=== PATIENT | male | born 1955 | race Caucasian/White ===

== ENCOUNTER 2020-06-08 15:05 | Emergency (ER) | payer MEDICARE, OTHER, SELFPAY ==
[2020-06-08] VITALS (7 sets, daily range): BP systolic 159–181; BP diastolic 79–103; PULSE 48–55; RESP 19; TEMP 36.3; O2SAT 99–100
[2020-06-08] MEDS: FAMOTIDINE 20 MG/50 ML PIGGYBACK 200 MG IV (15:48)
[2020-06-08] MEDS: methylPREDNISolone 125 MG/2 ML VIAL IV (15:49)
[2020-06-08] MEDS: diphenhydrAMINE 50 MG/ML VIAL IV (15:49)
--- NOTE | 2020-06-08 16:02 | PC.NURSE ---
pt has low HR which is normal for him
--- NOTE | 2020-06-08 17:05 | ED_ITS ---
HPI - Skin/Abscess/Foreign Bdy <KOMAL Martinez - Last Filed: 06/08/20 17:15> General Chief complaint: Skin/Abscess/Foreign Body Stated complaint: lower lip very swollen, thinks stung by something Time Seen by Provider: 06/08/20 15:15 Source: patient Mode of arrival: Ambulatory Limitations: no limitations History of Present Illness HPI narrative: This is a 64-year-old male, nonsmoker, who has noncontributing medical history presents to ED with significant other with chief complain of swelling to lower lip and chin after possibly stung by a bee 40 minutes ago. Patient denies swelling to his tongue, throat, breathing difficulty, chest pain, near syncope, nausea/vomiting, or abdominal pain. Patient was waiting at the [employer] and was eating blackberries when he noticed stinging sensation discomfort to lower lip. Patient was not able to find testing but spouse states found a drop of blood on external mid lower lip. Patient states he was stung by bees before without anaphylactic symptoms. Last tetanus immunization was in November 2015. Related Data Home Medications Medication Instructions Recorded Confirmed rosuvastatin 10 mg PO SEEINSTR 06/08/20 06/08/20 rosuvastatin 20 mg PO SEEINSTR 06/08/20 06/08/20 warfarin 5 mg PO SEEINSTR 06/08/20 06/08/20 Previous Rx's Medication Instructions Recorded prednisone 40 mg PO DAILY 4 Days #8 tab 06/08/20 Allergies Allergy/AdvReac Type Severity Reaction Status Date / Time No Known Drug Allergies Allergy Verified 06/08/20 15:20 Review of Systems <KOMAL Martinez - Last Filed: 06/08/20 17:15> Review of Systems Narrative: General: Denies fever, chills, fatigue, malaise, sweats. HEENT: See HPI Respiratory: Denies dyspnea, cough, wheezing, hemoptysis, sputum. Cardiovascular: Denies chest pain, palpitations, orthopnea, edema. Gastrointestinal: Denies nausea, vomiting, abdominal pain, diarrhea, constipation, melena. : Denies dysuria, frequency, incontinence, hematuria, urinary retention. Musculoskeletal: Denies weakness, joint pain or bony pain. Skin: See HPI Neurologic: Denies weakness, headache, numbness, change in speech, confusion, seizures, incoordination. Psychiatric: No concerning psychosocial issues. 12-point review of systems is negative except for those stated above. Patient History <Rico AnnCiroSteveKOMAL harrington - Last Filed: 06/08/20 17:15> Medical History Bradycardia (Acute) Social History Smoking Status: Never smoker Smoking Status: Never smoker alcohol intake frequency: a few times a month Substance Use Type: does not use Exam <Rico AnnKOMAL Osman - Last Filed: 06/08/20 17:15> Narrative Exam Narrative: GEN: Alert, oriented x 3, well appearing and nourished, and in no acute distress. Head: Normal cephalic, atraumatic. No scalp or temporal tenderness, palpable mass or rash. EYES: Pupils are equal, round, and reactive to light and accommodation. Extraocular muscles are intact bilaterally. There is no subconjunctival hemorrhage, exudate and sclera non-icteric. ENT: Hearing grossly intact. Nose without bleeding, purulent discharge or de viation. Facial sinuses nontender to palpate. Mucous membrane moist, no mucosal lesion. Throat without erythema, tonsillar hypertrophy or exudate. Uvula in midline, airway patent. Neck: Trachea in midline. No JVD, non-tender without lymphadenopathy. No masses or thyroid megaly. Supple, non-tender and no meningeal signs. CARDIAC: Normal regular rate and rhythm without murmurs, gallops, or rubs. No chest wall tenderness. No peripheral edema, cyanosis or pallor. Capillary refill is less than 2 seconds. RESPIRATORY: Lungs are clear to auscultate bilaterally. No cough, wheezes, rales, or rhonchi. No stridor, respiratory distress, increase work of breathing, or accessary muscle used. ABD: Abdomen soft, nontender and non-distended. No guarding or rebound tenderness to palpate. Bowel sounds are normal in all 4 quadrants. There is no palpable masses or organomegaly. EXT: Full painless ROM of all extremities with no loss of sensation, strength, effusion or edema. SKIN: Significant edematous lower lip ext tending to jaws with mild erythema. Warm, dry, normal color for patient. No erythema, lesions or rash over visible areas. BACK: Nontender without deformity or crepitance. No flank tenderness. NEUROLOGICAL: Alert and oriented to place, time and person. Sensation and motor function intact bilaterally. No facial droops, dysphasia. PSYCHIATRIC: Good judgement and reason, without hallucinations, abnormal affect or abnormal behaviors during the examination. Patient is not suicidal. Initial Vital Signs Initial Vital Signs: Vital Signs Temperature 97.4 F L 06/08/20 15:17 Pulse Rate 55 L 06/08/20 15:17 Respiratory Rate 06/08/20 15:17 Blood Pressure 181/103 H 06/08/20 15:17 Pulse Oximetry 99 06/08/20 15:17 <Yara Danielle MD - Last Filed: 06/08/20 17:53> Initial Vital Signs Initial Vital Signs: Vital Signs Temperature 97.4 F L 06/08/20 15:17 Pulse Rate 55 L 06/08/20 15:17 Respiratory Rate 06/08/20 15:17 Blood Pressure 181/103 H 06/08/20 15:17 Pulse Oximetry 99 06/08/20 15:17 Scores <KOMAL Martinez - Last Filed: 06/08/20 17:15> GCS [place] coma scale eye opening: Spontaneous [place] coma scale verbal response: Orientated [place] coma scale motor response: Obey commands [place] coma scale total score: 15 Course <KOMAL Martinez - Last Filed: 06/08/20 17:15> Orders Ordered: Discontinued Medications Diphenhydramine HCl (Benadryl) 50 mg IV NOW ONE Stop: 06/08/20 15:23 Last Admin: 06/08/20 15:49 Dose: 50 mg Documented by: REHANA Famotidine (Pepcid) 20 mg in 50 mls @ 200 mls/hr IV NOW ONE Stop: 06/08/20 15:36 Last Infusion: 06/08/20 16:43 Dose: 0 mls/hr Documented by: Admin: 06/08/20 15:48 Dose: 200 mls/hr Documented by: REHANA Methylprednisolone (Solu-Medrol 125 Mg Vial) 125 mg IV NOW ONE Stop: 06/08/20 15:24 Last Admin: 06/08/20 15:49 Dose: 125 mg Documented by: REHANA Vital Signs Vital signs: Vital Signs - 8 hr 06/08/20 15:17 06/08/20 16:00 06/08/20 16:01 Temperature 97.4 F L Pulse Rate 55 L 53 L 50 L Respiratory Rate 19 Blood Pressure 181/103 H 163/84 H Pulse Oximetry 99 100 06/08/20 16:30 06/08/20 16:52 06/08/20 17:00 Temperature Pulse Rate 51 L 51 L 48 L Respiratory Rate Blood Pressure 174/82 H 159/83 H Pulse Oximetry 99 100 100 06/08/20 17:01 Temperature Pulse Rate 49 L Respiratory Rate Blood Pressure 163/79 H Pulse Oximetry 100 <Yara Danielle MD - Last Filed: 06/08/20 17:53> Orders Ordered: Discontinued Medications Diphenhydramine HCl (Benadryl) 50 mg IV NOW ONE Stop: 06/08/20 15:23 Last Admin: 06/08/20 15:49 Dose: 50 mg Documented by: REHANA Famotidine (Pepcid) 20 mg in 50 mls @ 200 mls/hr IV NOW ONE Stop: 06/08/20 15:36 Last Infusion: 06/08/20 16:43 Dose: 0 mls/hr Documented by: Admin: 06/08/20 15:48 Dose: 200 mls/hr Documented by: REHANA Methylprednisolone (Solu-Medrol 125 Mg Vial) 125 mg IV NOW ONE Stop: 06/08/20 15:24 Last Admin: 06/08/20 15:49 Dose: 125 mg Documented by: REHANA Vital Signs Vital signs: Vital Signs - 8 hr 06/08/20 15:17 06/08/20 16:00 06/08/20 16:01 Temperature 97.4 F L Pulse Rate 55 L 53 L 50 L Respiratory Rate 19 Blood Pressure 181/103 H 163/84 H Pulse Oximetry 99 100 06/08/20 16:30 06/08/20 16:52 06/08/20 17:00 Temperature Pulse Rate 51 L 51 L 48 L Respiratory Rate Blood Pressure 174/82 H 159/83 H Pulse Oximetry 99 100 100 06/08/20 17:01 Temperature Pulse Rate 49 L Respiratory Rate Blood Pressure 163/79 H Pulse Oximetry 100 MDM - Skin/Abscess/Foreign Bdy <Rico KOMAL Carlson - Last Filed: 06/08/20 17:15> Differential Diagnosis Differential diagnosis: Likely insect bites and other (Localized allergic reaction) Medical Records Attestation: I reviewed the patient's medical records. [facility] Narrative Medical decision making narrative: This is a 64-year-old gentleman presents to ED after likely stung by a bee on lower lip while eating blackberries at the [employer] before coming into ED. There was significant swelling to lower lip which is cyst extending to chin but no swelling to tongue or throat. Airway was patent without increased work of breathing. Lungs were clear to auscultate and no stridor is. No other anaphylactic symptoms reported per patient. Given the location and severity of bee sting reactions, patient elected to use IV medic ations verses p.o.. He was given IV Benadryl, Pepcid, Solu-Medrol and monitored for near 2 hours. His symptoms much improved and continue not to have stridor, dyspnea, other oropharyngeal swelling. Patient discharged to home with these medications and strict return precautions were discussed with spouse and patient. They both verbalized the understanding and agreement with the treatment plan. Explained to spouse that it is likely localized reaction to bee sting but location lower lip which is different from anaphylactic reaction or shock. Discharge Plan Departure Patient Disposition: Home Clinical Impression: Allergic reaction to bee sting Discharge Date/Time: 06/08/20 17:15 Instructions: DI for Insect Bites and Stings Activity Restrictions/Additional Instructions: You have been diagnosed with [bee sting on lip with localized reaction. You have received IV Benadryl, Solu-Medrol, and Pepcid in ED to treat severe localized reaction on lower lip swelling with improvement.]. What to do: *Take your medications as directed. Please continue with prednisone for next 4 days daily. You can start this tomorrow. You may need additional Benadryl for recurring symptoms. You can take [id number] Benadryl 25-50 up to 3 to 4 times a day as needed for itching, swelling, redness. Tagamet or Pepcid 20 mg once a day for histamine diane. Use cool pack on affected site frequently for next couple of days. Prednisone has been transmitted to [facility] in [facility]. *Follow up with your primary care provider in 2-3 days, call for an appointment. Let them know you were seen in the ED and that we asked you to be seen in follow up. *Return to ED if you have any new, worsening, or concerning symptoms, such as chest pain, difficulty breathing, swelling to throat/tongue, abdominal pain, feeling like faint, nausea/vomiting or any acute concerns. If severe allergy reaction occurs such these, please call 911 . Prescriptions: New prednisone 20 mg tablet 40 mg PO DAILY 4 Days Qty: 8 RF: 0 No Action warfarin 1 mg tablet 5 mg PO SEEINSTR RF: 0 rosuvastatin 10 mg tablet 10 mg PO SEEINSTR RF: 0 rosuvastatin 20 mg tablet 20 mg PO SEEINSTR RF: 0 <Yara Danielle MD - Last Filed: 06/08/20 17:53> Cosign ED Attending Cosignature Attestation: I was immediately available in the department for consultation throughout this patient's visit. I agree with documentation as above. Yara Danielle MD
== END 2020-06-08 17:15 | disposition home or self-care (01) ==
PROVIDERS: Emergency Provider Nurse Practitioner Family
DX: T78.40XA Allergy, unspecified, initial encounter (principal); T63.441A Toxic effect of venom of bees, accidental (unintentional), initial encounter
CPT/HCPCS: 96365; 96375; 99283; 99284; J1200; J2930

== ENCOUNTER 2023-01-24 14:45 | Emergency (ER) | payer MEDICARE, OTHER, SELFPAY ==
[2023-01-24] VITALS (8 sets, daily range): BP systolic 125–148; BP diastolic 65–82; PULSE 45–51; RESP 15–27; TEMP 36.7; O2SAT 97–100; BMI 21.7
--- NOTE | 2023-01-24 14:57 | DI.RAD.S_ITS ---
PROCEDURE: XR CHEST 1V INDICATIONS: Possible stroke TECHNIQUE: One view of the chest was acquired. COMPARISON: None. FINDINGS: Surgical changes and devices: None. Lungs and pleura: Lungs are clear. No pleural effusions or pneumothorax. Mediastinum: Mediastinal contours appear normal. Heart size is normal. Bones and chest wall: No suspicious bony lesions. Overlying soft tissues appear unremarkable. IMPRESSION: No acute cardiopulmonary abnormalities or focal airspace disease. Dictated by: Frank Hooks M.D. on 01/24/2023 at 15:48 Approved by: Frank Hooks M.D. on 01/24/2023 at 15:49
--- NOTE | 2023-01-24 14:57 | DI.CT.S_ITS ---
PROCEDURE: CT STROKE INDICATIONS: Positive BE-FAST, Stroke symptoms TECHNIQUE: Noncontrast 4.5 mm thick angled axial sections acquired from the foramen magnum to the vertex, with coronal reformats. For radiation dose reduction, the following was used: automated exposure control, adjustment of mA and/or kV according to patient size. COMPARISON: None. FINDINGS: Image quality: Excellent. CSF spaces: Basal cisterns are patent. No extra-axial fluid collections. The ventricles are symmetric in size and shape. Brain: No intracranial bleeds or masses. There is moderate cerebral volume loss for age, with resultant ventricular and sulcal prominence. There are moderate periventricular and deep white matter chronic small vessel ischemic changes. There is encephalomalacia involving the left temporal lobe compatible with remote infarction. No findings to suggest acute mass effect or sulcal effacement. There is intracranial internal carotid artery atherosclerosis. Skull and face: Calvarium and visualized facial bones appear intact, without suspicious lesions. Sinuses: Visualized sinuses and mastoids are clear. IMPRESSION: 1. CT head without acute intracranial abnormalities. Age related senescent changes and sequela of chronic small vessel ischemic disease. Moderate-sized encephalomalacia involving the left temporal lobe consistent with reported history of remote infarction. If there is persistent or high clinical suspicion for acute cerebrovascular ischemia/stroke, more sensitive evaluation with brain MRI can be considered. 2. No acute calvarial fracture. Findings were discussed telephonically with Dr. Iverson at 1528 hrs. This study fulfills neurological imaging criteria for inclusion or exclusion of acute stroke therapies based on available published neurological guidelines. Dictated by: Frank Hooks M.D. on 01/24/2023 at 15:24 Approved by: Frank Hooks M.D. on 01/24/2023 at 15:29
--- NOTE | 2023-01-24 15:07 | DI.CT.S_ITS ---
PROCEDURE: CT ANGIO HEAD AND NECK INDICATIONS: limb numbness TECHNIQUE: After the administration of intravenous contrast, 1.5 mm axial sections acquired from the aortic arch to the [place] of [place]. Maximum intensity projection (MIP) reformats were then performed. COMPARISON: [facility], CT, CT STROKE, 01/24/2023, 15:06. FINDINGS: Image quality: Excellent. 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 The origins of the common carotid arteries appear patent. The common carotid arteries demonstrate normal calibers and courses. The bifurcation regions appear normal bilaterally. The internal carotid arteries demonstrate normal caliber and course. Posterior circulation: The origins of the vertebral arteries appear patent. The more superior portions of the vertebral arteries demonstrate normal course and caliber. They join to form a normal appearing basilar artery. Soft tissues: Visualized neck soft tissues demonstrate no suspicious abnormalities. Thyroid gland is unremarkable . Hypoattenuation within the left temporal parietal lobe consistent with remote infarction is again identified. Bones: No suspicious bony lesions. Visualized cervical spine appears normally aligned. Anterior circulation: There are no areas of acute hemodynamically significant stenosis, vascular occlusion, aneurysmal dilation or dissection within the anterior, posterior middle cerebral arteries. The intracranial internal carotid arteries are widely patent bilaterally. Posterior circulation: There is a left vertebral artery dominance. Vertebral arteries join to form a normal appearing basilar artery. Posterior cerebral artery demonstrates no areas of acute hemodynamically significant stenosis, vascular occlusion or aneurysmal dilation. IMPRESSION: Chronic microvascular ischemic change and atrophy. 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 No areas of hemodynamically significant stenosis, vascular occlusion or aneurysmal dilation within the anterior circulation. No areas of hemodynamically significant stenosis, vascular occlusion or aneurysmal dilation within the posterior circulation. No areas of hemodynamically significant stenosis, vascular occlusion or aneurysmal dilation within the neck vasculature. Any quantitative stenosis measurements were performed using the NASCET criteria. Dictated by: Analia Harris M.D. on 01/24/2023 at 15:41 Approved by: Analia Harris M.D. on 01/24/2023 at 15:45
[2023-01-24 15:23] LABS: INR 1.1 (0.9-1.3); Prothrombin Time 12.4 SECONDS (10.1-12.7)
[2023-01-24 15:25] LABS: Alanine Aminotransferase 25 IU/L (<50); Albumin 4.1 g/dL (3.5-5.0); Albumin Globulin Ratio 1.4 (1.0-2.8); Alkaline Phosphatase 56 U/L (38-126); Aspartate Aminotransferase 33 IU/L (17-59); BUN Creatinine Ratio 24.7 (6-22); Bilirubin Total 0.3 mg/dL (0.2-1.3); Blood Urea Nitrogen 20 mg/dL (9-20); Calcium 9.2 mg/dL (8.4-10.2); Carbon Dioxide 28 mmol/L (22-32); Chloride 106 mmol/L (98-107); Creatine Kinase 109 U/L (55-170); Estimated Glomerular Filt Rate > 60 mL/min (>60); Globulin 2.9 g/dL (1.7-4.1); Glucose 92 mg/dL (80-110); HEMOLYSIS < 15 (0-50); Magnesium 2.2 mg/dL (1.6-2.3); Sodium 140 mmol/L (137-145)
[2023-01-24 15:26] LABS: PTT Partial Thromboplastin Tim 31 SECONDS (26-36)
[2023-01-24 15:31] LABS: Add Manual Diff / Slide Review NO; Basophils Absolute Auto 0 /uL (0-100); Basophils Percent Auto 0.5 % (0-2); Eosinophils Absolute Auto 100 /uL (0-450); Eosinophils Percent Auto 1.3 % (2-4); Hematocrit 41.6 % (41-53); Hemoglobin 14.5 g/dL (13.5-17.5); Lymphocytes Absolute Auto 1200 /uL (1100-4500); Lymphocytes Percent Auto 22.6 % (25-40); Mean Corpuscular HGB Conc 34.9 % (30-36); Mean Corpuscular Hemoglobin 31.9 PG (26-34); Mean Corpuscular Volume 91.5 fL (80-100); Monocytes Absolute Auto 500 /uL (0-900); Monocytes Percent Auto 8.9 % (3-14); Neutrophils Absolute Auto 3500 /uL (1500-7000); Neutrophils Percent Auto 66.7 % (50-75); Platelet Count 203 X10^3/uL (150-400); Red Blood Cell Count 4.54 X10^6/uL (4.5-5.9); Red Cell Distribution Width 13.1 % (11.6-14.8); White Blood Cell Count 5.3 X10^3/uL (4.5-11.0)
[2023-01-24 15:37] LABS: Troponin I < 0.012 ng/mL (0.01-0.034)
[2023-01-24 15:40] LABS: CKMB % Relative Index 1.1 % (1.5-5.0); Creatine Kinase MB 1.18 ng/mL (<2.37)
[2023-01-24 15:41] LABS: D Dimer < 215 ng/ml (<500)
[2023-01-24 18:25] LABS: Appearance Urine UA CLEAR; Bilirubin Urine UA NEGATIVE (NEGATIVE); Color Urine UA YELLOW; Glucose Urine UA NEGATIVE (Negative); Ketones Urine UA NEGATIVE (NEGATIVE); Leukocyte Esterase Urine UA NEGATIVE (NEGATIVE); Nitrite Urine UA NEGATIVE (Negative); Occult Blood Urine UA NEGATIVE (Negative); Protein Urine UA NEGATIVE (Negative); Specific Gravity Urine UA <=1.005 (1.000-1.035); Urobilinogen Urine UA 0.2 E.U./dL (0.2); pH Urine UA 6.5 (4.5-8.0)
[2023-01-24 18:30] LABS: UR Morphine/Opiate cutoff 300 Negative (Negative); Ur Creatinine Normal (Normal); Ur Specific Gravity Normal (Normal); Urine Amphetamines Negative (Negative); Urine Barbiturates Negative (Negative); Urine Benzodiazepines Negative (Negative); Urine Cocaine Negative (Negative); Urine MDMA Negative (Negative); Urine Methadone Negative (Negative); Urine Methamphetamines Negative (Negative); Urine Oxycodone Negative (Negative); Urine Phencyclidine Negative (Negative); Urine Tetrahydrocannabinol Negative (Negative); Urine Tricyclic Antidepressant Negative (Negative); Urine pH Normal (Normal)
[2023-01-24 18:36] LABS: Bacteria Urine None Seen; Culture Indicated Urine Cult Not Indicated; RBC Urine None Seen (0-5/HPF); Squamous Epithelial Cell Urine None Seen (0-5/HPF); WBC Urine None Seen (0-5/HPF)
--- NOTE | 2023-01-24 19:06 | ED.NEUROSD ---
HPI - Neuro Symptoms/Deficit General Chief Complaint: Neuro Symptoms/Deficit Stated Complaint: L/arm numb and swollen. feeling faint Time Seen by Provider: 01/24/23 15:07 Source: patient Mode of arrival: Ambulatory History of Present Illness HPI Narrative: Patient is a 67-year-old male who had history of CVA with some residual aphasia, anti lupus antibody resolved with hydrochloroquine, atrial fibrillation history of ablation currently in sinus rhythm continues to be on Eliquis 2.5 mg twice a day presents with some left arm discomfort. He reports it while eating breakfast elbow to wrist felt ?tight. ? Not numb he denies any weakness no numbness although he reported that initially he says that was the wrong word. He says it lasted for about 30 minutes and resolved. No difficulty speaking no vision changes no other focal deficits. No fever chills or chest pain. On Anticoagulants: Yes (Eliquis) Related Data Home Medications Medication Instructions Recorded Confirmed rosuvastatin 10 mg tablet 10 mg PO SEEINS 06/08/20 06/08/20 rosuvastatin 20 mg tablet 20 mg PO SEEINS 06/08/20 06/08/20 warfarin 1 mg tablet 5 mg PO SEEINSTR 06/08/20 06/08/20 Allergies Allergy/AdvReac Type Severity Reaction Status Date / Time No Known Drug Allergies Allergy Verified 01/24/23 14:56 Review of Systems Review of Systems ROS Unobtainable: All systems reviewed & are unremarkable except as noted in HPI and below Hematologic/Lymphatic On Anticoagulants: Yes (Eliquis) Patient History Medical History (Updated 01/24/23 @ 20:50 by Jazmin Bravo DO) Bradycardia Social History Smoking Status: Never smoker Smoking Status: Never smoker alcohol intake frequency: a few times a month Substance Use Type: does not use Exam Initial Vital Signs Initial Vital Signs: Vital Signs Temperature 98.0 F 01/24/23 14:49 Pulse Rate 49 L 01/24/23 14:49 Respiratory Rate 18 01/24/23 14:49 Blood Pressure 129/68 01/24/23 14:49 Pulse Oximetry 98 01/24/23 14:49 Oxygen Delivery Method Room Air 01/24/23 14:49 GENERAL: Alert very pleasant 67-year-old male and in no acute distress. HEENT: Head atraumatic,EOMI, pupils reactive, face symmetric, moist mucous membranes CARDIOVASCULAR: Regular rate and rhythm without murmurs, rubs or gallops. RESPIRATORY: Breath sounds equal bilaterally, no wheezes rales or rhonchi. ABDOMEN: Soft, nontender. Normoactive bowel sounds all 4 quadrants. No guarding or rebound. EXTREMITIES: Normal range of motion, no clubbing or edema. Neurovascularly intact NEUROLOGICAL: Alert and oriented x4.Normal gait and speech. Cranial nerves II through XII grossly intact. Good [id number], good [id number], strength equal bilaterally, no dysarthria or aphasia, sensation in tact to soft touch bilaterally, no visual changes, no facial droop SKIN: Warm, dry, no laceration, no petechiae, no rashes or lesions. Scores NIH Stroke Scale Level of Conciousness: Alert, keenly responsive Ask month/age: Answers both questions correctly. Open/close eyes, close hand: Performs both tasks correctly Best gaze horizontal: Normal Visual mueller: No visual loss Facial palsy: Normal symetrical movement Left arm drift: No drift for full 10 sec Right arm drift: No drift for full 10 sec Left leg drift: No drift for full 5 sec Right leg drift: No drift for full 5 sec Limb ataxia: Absent Sensory on face/arms/legs: Normal, no sensory loss Best language: No aphasia, normal Dysarthria: Normal Extinction or inattention: No abnormality Total NIH Stroke scale score: 0 Course Orders Ordered: Discontinued Medications Ondansetron HCl (Ondansetron 4 Mg/2 Ml Inj) 4 mg IV NOW PRN PRN Reason: Nausea And Vomiting Vital Signs Vital signs: Vital Signs - 8 hr 01/24/23 14:49 Temperature 98.0 F Pulse Rate 49 L Respiratory Rate 18 Blood Pressure 129/68 Pulse Oximetry 98 Oxygen Delivery Method Room Air MDM - Neuro Symptoms/Deficit Lab Data 01/24/23 15:03 01/24/23 15:03 Labs: Lab Results 01/24/23 01/24/23 01/24/23 Range/Units 15:03 15:03 15:03 WBC 5.3 (4.5-11.0) X10^3/uL RBC 4.54 (4.5-5.9) X10^6/uL Hgb 14.5 (13.5-17.5) g/dL Hct 41.6 (41-53) % MCV 91.5 (80-100) fL MCH 31.9 (26-34) PG MCHC 34.9 (30-36) % RDW 13.1 (11.6-14.8) % Plt Count 203 (150-400) X10^3/uL Neut % (Auto) 66.7 (50-75) % Lymph % (Auto) 22.6 L (25-40) % Wood % (Auto) 8.9 (3-14) % Eos % (Auto) 1.3 L (2-4) % Baso % (Auto) 0.5 (0-2) % Neut # (Auto) 3500 (2536-8875) /uL Lymph # (Auto) 1200 (3912-5857) /uL Wood # (Auto) 500 (0-900) /uL Eos # (Auto) 100 (0-450) /uL Baso # (Auto) 0 (0-100) /uL PT 12.4 (10.1-12.7) SECONDS INR 1.1 (0.9-1.3) APTT 31 (26-36) SECONDS D-Dimer (<500) ng/ml Sodium 140 (137-145) mmol/L Potassium 4.0 (3.4-5.1) mmol/L Chloride 106 (98-107) mmol/L Carbon Dioxide 28 (22-32) mmol/L BUN 20 (9-20) mg/dL Creatinine 0.81 (0.66-1.25) mg/dL Estimated GFR > 60 (>60) mL/min BUN/Creatinine Ratio 24.7 H (6-22) Glucose 92 (80-110) mg/dL Calcium 9.2 (8.4-10.2) mg/dL Magnesium 2.2 (1.6-2.3) mg/dL Total Bilirubin 0.3 (0.2-1.3) mg/dL AST 33 (17-59) IU/L ALT 25 (<50) IU/L Alkaline Phosphatase 56 (38-126) U/L Total Creatine Kinase 109 (55-170) U/L CK-MB (CK-2) 1.18 (<2.37) ng/mL CK-MB (CK-2) Rel Index 1.1 L (1.5-5.0) % Troponin I < 0.012 (0.01-0.034) ng/mL Total Protein 7.0 (6.3-8.2) g/dL Albumin 4.1 (3.5-5.0) g/dL Globulin 2.9 (1.7-4.1) g/dL Albumin/Globulin Ratio 1.4 (1.0-2.8) Urine Color Urine Appearance Urine pH (4.5-8.0) Ur Specific [place] (1.000-1.035) Urine Protein (Negative) Urine Glucose (UA) (Negative) g/dL Urine Ketones (NEGATIVE) Urine Occult Blood (Negative) Urine Nitrate (Negative) Urine Bilirubin (NEGATIVE) Urine Urobilinogen (0.2) E.U./dL Ur Leukocyte Esterase (NEGATIVE) Urine RBC (0-5/HPF) Urine WBC (0-5/HPF) Ur Squamous Epith Cells (0-5/HPF) Urine Bacteria (None) Ur Culture Indicated? U Opiates 300ng/mL cut (Negative) Ur Oxycodone Screen (Negative) Urine Methadone Screen (Negative) Ur Barbiturates Screen (Negative) U Tricyclic Antidepress (Negative) Ur Phencyclidine Scrn (Negative) Ur Amphetamines Screen (Negative) U Methamphetamines Scrn (Negative) Ur MDMA Scrn (Ecstasy) (Negative) U Benzodiazepines Scrn (Negative) Urine Cocaine Screen (Negative) U Marijuana (THC) Screen (Negative) 01/24/23 01/24/23 01/24/23 Range/Units 15:03 18:00 18:00 WBC (4.5-11.0) X10^3/uL RBC (4.5-5.9) X10^6/uL Hgb (13.5-17.5) g/dL Hct (41-53) % MCV (80-100) fL MCH (26-34) PG MCHC (30-36) % RDW (11.6-14.8) % Plt Count (150-400) X10^3/uL Neut % (Auto) (50-75) % Lymph % (Auto) (25-40) % Wood % (Auto) (3-14) % Eos % (Auto) (2-4) % Baso % (Auto) (0-2) % Neut # (Auto) (5431-3226) /uL Lymph # (Auto) (7214-5977) /uL Wood # (Auto) (0-900) /uL Eos # (Auto) (0-450) /uL Baso # (Auto) (0-100) /uL PT (10.1-12.7) SECONDS INR (0.9-1.3) APTT (26-36) SECONDS D-Dimer < 215 (<500) ng/ml Sodium (137-145) mmol/L Potassium (3.4-5.1) mmol/L Chloride (98-107) mmol/L Carbon Dioxide (22-32) mmol/L BUN (9-20) mg/dL Creatinine (0.66-1.25) mg/dL Estimated GFR (>60) mL/min BUN/Creatinine Ratio (6-22) Glucose (80-110) mg/dL Calcium (8.4-10.2) mg/dL Magnesium (1.6-2.3) mg/dL Total Bilirubin (0.2-1.3) mg/dL AST (17-59) IU/L ALT (<50) IU/L Alkaline Phosphatase (38-126) U/L Total Creatine Kinase (55-170) U/L CK-MB (CK-2) (<2.37) ng/mL CK-MB (CK-2) Rel Index (1.5-5.0) % Troponin I (0.01-0.034) ng/mL Total Protein (6.3-8.2) g/dL Albumin (3.5-5.0) g/dL Globulin (1.7-4.1) g/dL Albumin/Globulin Ratio (1.0-2.8) Urine Color Yellow Urine Appearance Clear Urine pH 6.5 (4.5-8.0) Ur Specific [place] <=1.005 (1.000-1.035) Urine Protein Negative (Negative) Urine Glucose (UA) Negative (Negative) g/dL Urine Ketones Negative (NEGATIVE) Urine Occult Blood Negative (Negative) Urine Nitrate Negative (Negative) Urine Bilirubin Negative (NEGATIVE) Urine Urobilinogen 0.2 (0.2) E.U./dL Ur Leukocyte Esterase Negative (NEGATIVE) Urine RBC None seen (0-5/HPF) Urine WBC None seen (0-5/HPF) Ur Squamous Epith Cells None seen (0-5/HPF) Urine Bacteria None seen (None) Ur Culture Indicated? Cult not indicated U Opiates 300ng/mL cut Negative (Negative) Ur Oxycodone Screen Negative (Negative) Urine Methadone Screen Negative (Negative) Ur Barbiturates Screen Negative (Negative) U Tricyclic Antidepress Negative (Negative) Ur Phencyclidine Scrn Negative (Negative) Ur Amphetamines Screen Negative (Negative) U Methamphetamines Scrn Negative (Negative) Ur MDMA Scrn (Ecstasy) Negative (Negative) U Benzodiazepines Scrn Negative (Negative) Urine Cocaine Screen Negative (Negative) U Marijuana (THC) Screen Negative (Negative) Imaging Data CT scan - head: Radiologist's Impression: PROCEDURE:? CT STROKE ? INDICATIONS:? Positive BE-FAST, Stroke symptoms ? TECHNIQUE:? Noncontrast 4.5 mm thick angled axial sections acquired from the foramen magnum to the vertex, with coronal reformats.? For radiation dose reduction, the following was used:? automated exposure control, adjustment of mA and/or kV according to patient size.? ? COMPARISON:? None. ? FINDINGS:? Image quality:? Excellent.? ? CSF spaces:? Basal cisterns are patent.? No extra-axial fluid collections.? The ventricles are symmetric in size and shape.? ? Brain:? No intracranial bleeds or masses.? There is moderate cerebral volume loss for age, with resultant ventricular and sulcal prominence.? There are moderate periventricular and deep white matter chronic small vessel ischemic changes.? There is encephalomalacia involving the left temporal lobe compatible with remote infarction.? No findings to suggest acute mass effect or sulcal effacement.? There is intracranial internal carotid artery atherosclerosis.? ? Skull and face:? Calvarium and visualized facial bones appear intact, without suspicious lesions.? ? Sinuses:? Visualized sinuses and mastoids are clear.? ? IMPRESSION:? ? 1. CT head without acute intracranial abnormalities.? Age related senescent changes and sequela of chronic small vessel ischemic disease.? Moderate-sized encephalomalacia involving the left temporal lobe consistent with reported history of remote infarction.? If there is persistent or high clinical suspicion for acute cerebrovascular ischemia/stroke, more sensitive evaluation with brain MRI can be considered.? ? 2. No acute calvarial fracture. Findings were discussed telephonically with Dr. Iverson at 1528 hrs. ? This study fulfills neurological imaging criteria for inclusion or exclusion of acute stroke therapies based on available published neurological guidelines.? ? ? Dictated by: Frank Hooks M.D. on 01/24/2023 at 15:24 Chest x-ray: Radiologist's Impression: PROCEDURE:? XR CHEST 1V ? INDICATIONS:? Possible stroke ? TECHNIQUE:? One view of the chest was acquired.? ? COMPARISON:? None. ? FINDINGS:? ? Surgical changes and devices:? None.? ? Lungs and pleura:? Lungs are clear.? No pleural effusions or pneumothorax.? ? Mediastinum:? Mediastinal contours appear normal.? Heart size is normal.? ? Bones and chest wall:? No suspicious bony lesions.? Overlying soft tissues appear unremarkable.? ? IMPRESSION:? No acute cardiopulmonary abnormalities or focal airspace disease. ? Dictated by: Frank Hooks M.D. on 01/24/2023 at 15:48 ? ? CTA - brain/neck: Radiologist's Impression: PROCEDURE:? CT ANGIO HEAD AND NECK ? INDICATIONS:? limb numbness ? TECHNIQUE:? After the administration of intravenous contrast, 1.5 mm axial sections acquired from the aortic arch to the [place] of [place].? Maximum intensity projection (MIP) reformats were then performed.? ? COMPARISON:? [facility], CT, CT STROKE, 01/24/2023, 15:06. ? FINDINGS:? Image quality:? Excellent.? ? Carotid system:? 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 The origins of the common carotid arteries appear patent.? The common carotid arteries demonstrate normal calibers and courses.? The bifurcation regions appear normal bilaterally.? The internal carotid arteries demonstrate normal caliber and course.? ? Posterior circulation:? The origins of the vertebral arteries appear patent.? The more superior portions of the vertebral arteries demonstrate normal course and caliber.? They join to form a normal appearing basilar artery.? ? Soft tissues:? Visualized neck soft tissues demonstrate no suspicious abnormalities.? Thyroid gland is unremarkable .? Hypoattenuation within the left temporal parietal lobe consistent with remote infarction is again identified. ? Bones:? No suspicious bony lesions.? Visualized cervical spine appears normally aligned.? ? ? Anterior circulation:? There are no areas of acute hemodynamically significant stenosis, vascular occlusion, aneurysmal dilation or dissection within the anterior, posterior middle cerebral arteries.? The intracranial internal carotid arteries are widely patent bilaterally. ? Posterior circulation:? There is a left vertebral artery dominance.? Vertebral arteries join to form a normal appearing basilar artery.? Posterior cerebral artery demonstrates no areas of acute hemodynamically significant stenosis, vascular occlusion or aneurysmal dilation. ? IMPRESSION:? ? Chronic microvascular ischemic change and atrophy. ? 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 ? No areas of hemodynamically significant stenosis, vascular occlusion or aneurysmal dilation within the anterior circulation. ? No areas of hemodynamically significant stenosis, vascular occlusion or aneurysmal dilation within the posterior circulation. ? No areas of hemodynamically significant stenosis, vascular occlusion or aneurysmal dilation within the neck vasculature. ? Any quantitative stenosis measurements were performed using the NASCET criteria.? ? ? Dictated by: Analia Harris M.D. on 01/24/2023 at 15:41 ? ? Approved by: Analia Harris M.D. on 01/24/2023 at 15:45 ? ECG Data Interpretation: Sinus rhythm rate 48 MN interval 140 QRS [address] changes MDM Narrative Medical decision making narrative: The patient 67-year-old male history of atrial fibrillation with Watchman on Eliquis history of CVA presents today with left arm tightness. From elbow to wrist lasting less than 30 minutes. Description is quite atypical for a TIA or CVA however his multiple risk factors. CT angio and head CT were negative blood work is reassuring. Attempted for an MRI however patient has a Watchman he does not have the card unable to get an MRI without the card. Patient and report that they will be going to see at over they spend most of their time to his doctors. Not convinced patient had a TIA but do recommend an MRI unable to get it today. Also recommend close outpatient follow-up with PCP and possible Neurology. I do not think admission is required very atypical presentation. Both patient and understand and will follow-up as soon as possible Discharge Plan Departure Patient Disposition: Home Clinical Impression: Arm pain, Brain TIA Instructions: DI for Transient Ischemic Attack Activity Restrictions/Additional Instructions: *You have been diagnosed with left arm pain, possible TIA *What to do: I am sorry we were unable to do the MRI today I do strongly recommend that you get that done. *Continue to take medications as directed *Follow up with your primary care provider in 2-3 days or call [phone] *Return to ER if you should have increasing weakness pain numbness tingling difficulty speaking or any new, worsening or concerning symptoms Prescriptions: No Action warfarin 1 mg tablet 5 mg PO SEEINSTR Patient Comments: TK 1 TO 4 TS PO D UTD Rx Instructions: 5mg on Mondays and Fridays, 4mg on other days rosuvastatin 10 mg tablet 10 mg PO SEEINSTR Patient Comments: TK 1 T PO D Rx Instructions: 10mg 3 days a week rosuvastatin 20 mg tablet 20 mg PO SEEINSTR Rx Instructions: 20mg 4 days a week Referrals: Santhosh Wallace MD [Primary Care Provider] - Stand Alone Forms: Patient Portal/API
== END 2023-01-24 21:02 | disposition home or self-care (01) ==
PROVIDERS: Emergency Medicine; Emergency Provider Emergency Medicine; PCP Family Medicine
DX: G45.9 Transient cerebral ischemic attack, unspecified (principal); M79.603 Pain in arm, unspecified; Z79.01 Long term (current) use of anticoagulants
CPT/HCPCS: 36415; 70450; 70496; 70498; 71045; 80053; 80305; 81001; 82550; 82553; 83735; 84484; 85025; 85379; 85610; 85730; 93005; 99284; Q9967